=== PATIENT | female | born 1980 | race Caucasian/White ===

== ENCOUNTER → 2016-02-14 | Outpatient (CLI) | payer BC ==
[~2016-02-14] MED LIST: ATIVAN 0.50.5 MG/TAB PO; PYRIDIUM200 M1 PO
== END ==
LOC: MC.RAD 12:57
DX: N64.4 Mastodynia (principal)

== ENCOUNTER 2016-06-15 20:10 | Emergency (ER) | payer BC ==
[~2016-06-15] VITALS: Ht 160 cm; Wt 65.5 kg
[~2016-06-15 20:10] MED LIST changes: -PYRIDIUM200 M1 PO
[2016-06-15 20:11] VITALS: BP 127/77; PULSE 80; TEMP 98.2
[2016-06-15 21:00] LABS: BASO % 0.5 % (0.0-2.0); EOS # 0.1 (0.0-0.7); EOS % 1.9 % (0-4.0); GRAN # 3.6 (1.4-6.5); GRAN % 48.3 % (42.2-75.2); HEMATOCRIT 37.3 % (37.0-47.0); HEMOGLOBIN 13.2 g/dl (12.5-16.0); LYMPH % 39.9 % (20.0-51.0); MEAN CELL VOLUME 88 fl (80.0-100.0); MEAN CORPUSCULAR HEMOGLOBIN 31 pg (27.0-31.0); MEAN CORPUSCULAR HGB CONC 35 g/dl (33.0-37.0); MEAN PLATELET VOLUME 12.9 fl (7.4-10.4); MONO # 0.7 (0.1-0.6); MONO % 9.3 % (1.7-9.3); PLATELET COUNT 176 K/mm3 (130-400); RED BLOOD COUNT 4.24 M/mm3 (4.10-5.30); REDCELL DISTRIBUTION WIDTH-CV 11.9 % (11.5-14.5); WHITE BLOOD COUNT 7.4 K/mm3 (4.8-10.8)
[2016-06-15 21:05] LABS: PH 5 (5-8); SQUAMOUS EPITHELIAL 0-2 /hpf; URINE APPEARANCE Hazy; URINE BACTERIA None Seen /hpf; URINE BILIRUBIN Negative (NEGATIVE); URINE BLOOD 1+ (NEGATIVE); URINE COLOR Yellow; URINE GLUCOSE Negative (NEGATIVE); URINE KETONE Trace (NEGATIVE); URINE UROBILINOGEN Negative (NEGATIVE); URINE WBC 0-2 /hpf
[2016-06-15 21:13] LABS: ADJUSTED CALCIUM 8.7 mg/dL (8.4-10.2); ALANINE AMINOTRANSFERASE 24 U/L (9-52); ALBUMIN 4.8 gm/dL (3.5-5.0); ALKALINE PHOSPHATASE 48 U/L (50-136); ANION GAP 12 mmol/L (7-16); BILIRUBIN,TOTAL 0.7 mg/dL (0.0-1.0); BLOOD UREA NITROGEN 15 mg/dL (7-17); CALCIUM 9.3 mg/dL (8.4-10.2); CARBON DIOXIDE 24 mmol/L (22-30); CHLORIDE 102 mmol/L (98-107); CREATININE, serum 0.63 mg/dL (0.52-1.25); GLUCOSE 94 mg/dL (74-106); POTASSIUM 3.6 mmol/L (3.4-5.0); SODIUM 138 mmol/L (137-145); TOTAL PROTEIN 7.9 gm/dL (6.4-8.2)
[2016-06-15 21:24] LABS: C-REACTIVE PROTEIN < 0.5 mg/dL (0.0-0.9)
[2016-06-15] MEDS ORDERED: PYRIDIUM200 M1 PO (21:54)
[2016-06-16] LABS: CHLAMYDIA/TRACH by PCR Female NOT DETECTED; NEISSERIA GON by PCR Female NOT DETECTED
== END 2016-06-15 23:34 | disposition home or self-care (01) ==
LOC: COL.ER 20:10
PROVIDERS: Emergency Medicine
DX: R10.2 Pelvic and perineal pain (principal)
CPT/HCPCS: J1885; J2550; J7030

== ENCOUNTER → 2017-11-21 | Outpatient (CLI) | payer BC ==
[~2017-11-21] MED LIST changes: +PYRIDIUM200 M1 PO
== END ==
LOC: MC.RAD 13:17
DX: Z12.31 Encounter for screening mammogram for malignant neoplasm of breast (principal)